=== PATIENT | male | born 1950 | race Caucasian/White ===

== ENCOUNTER → 2016-11-26 | Outpatient (CLI) | payer MEDICARE ==
[~2016-11-26] MED LIST: AMLODIPINE; AMLODIPINE BESYL5 MG PO; ASPIRIN81 M1 PO; ASPIRIN81 M2 PO; BENAZEPRIL; CLOPIDOGREL75 MG PO; COREG3.125 MG PO; COREG6.25 MG PO; EFFIENT10 MG PO; HYDROCHLOROTHIA25 MG PO; ISOSORBIDE MONO30 M1 PO; LOTENSIN20 MG PO; METFORMIN HCL500 M3 PO; NITROGLYCERIN0.4 MG SL; PRAVACHOL PO; PRAVASTATIN SOD40 MG PO; PROTONIX20 MG PO; SYMBICORT INH; ZESTRIL5 MG PO
--- NOTE | ~2016-11-26 | TM ---
[id number] NAME: MIRZA GILBERT MR#: [id number] PROCEDURE PERFORMED Treadmill stress test. DESCRIPTION Resting heart rate is 67. Resting blood pressure is 130/80 mmHg. Baseline EKG shows normal sinus rhythm. No significant ST-T wave changes. PROCEDURE The patient was made to exercise on a standard Abraham protocol. Total exercise time is 7 minutes, completing 1 minute of stage 3 on a standard Abraham protocol. No complaints of chest pain. Maximal heart rate obtained is 135, which is 88% of maximum predicted heart rate. Maximal blood pressure obtained is 215/115 mmHg. The patient had 0.[address]-T wave changes noted in the lateral leads. No arrhythmias noted. CONCLUSION 1. Fair exercise tolerance. 2. There is no clinical, hemodynamic or EKG evidence of ischemia at [id number]-[id number] workload (88% of maximum predicted heart rate, 10.1 METS). 3. Normal heart rate response. 4. Hypertensive blood pressure response with a peak blood pressure of 215/115 mmHg. 5. Normal regular treadmill stress test with hypertensive blood pressure response to exercise. 6. It must be noted that the patient had not taken his blood pressure medications prior to the stress test. Dictated by...
== END | disposition home or self-care (01) ==
LOC: CEKG 09:04
DX: I25.10 Atherosclerotic heart disease of native coronary artery without angina pectoris (principal); E78.5 Hyperlipidemia, unspecified; I10 Essential (primary) hypertension; Z02.1 Encounter for pre-employment examination
CPT/HCPCS: 93017

== ENCOUNTER 2017-01-09 08:18 | Emergency (ER) | payer OTHER, MEDICARE ==
[~2017-01-09] VITALS: Ht 182.9 cm; Wt 102.0 kg
--- NOTE | ~2017-01-09 | EKG ---
PATIENT: MIRZA GILBERT UNIT #: [id number] Ventricular Rate: 53 BPM Atrial Rate: 53 BPM P-R Interval: 142 ms QRS Duration: 72 ms Q-T Interval: 440 ms QTC Calculation(Bezet): 412 ms P [place]: 27 degrees Calculated R [place]: 0 degrees Calculated T [place]: -4 degrees Diagnosis Line: Sinus bradycardia Diagnosis Line: Otherwise normal ECG Diagnosis Line: No previous ECGs available Diagnosis Line: Confirmed by ANIYAH QUIROS MD ([id number]) on 01/10/2017 Diagnosis Line: 5:00:36 PM INTERPRETING MD: ISHAAN MCCALLUM
--- NOTE | ~2017-01-09 | CT71 ---
[facility] A Service of [facility] RADIOLOGY TEXT RESULTS PATIENT: MIRZA GILBERT LOCATION: [place] : 50 UNIT #: [id number] AGE: [address]: Al Null SEX: M ORDER DR: [id number] [facility] [address] [place], [place] [address] [id number] E MR#: [id number] Acc #: [id number] NAME: MIRZA GILBERT : 1950 SEX: M STUDY DATE/TIME: 01/09/2017 10:38 UNIT: [place] ROOM: STUDY DESCRIPTION: CT Head Wo Contrast Attending Physician: Al Null R.N. Ordering Physician: Al Null R.N. Primary Care Physician: Rose Mary Daniels R.N. MEDICAL IMAGING REPORT This report is preliminary unless electronic signature is present EXAM Head CT without contrast HISTORY Loss of balance today with a fall. Headache. No loss of consciousness. TECHNIQUE Axial images were obtained without contrast and compared to 01/12/2012. FINDINGS TECHNIQUE Axial noncontrast images were obtained from the skull base to the vertex. This CT exam was performed with one or more of the following radiation dose reduction techniques: automatic exposure control, adjustment of mA and/or kV according to patient size, and iterative reconstruction. FINDINGS Ventricular size and configuration are normal. There is no evidence of acute infarct or hemorrhage. There are no extraaxial fluid collections. No mass lesion or mass effect is seen. There are no skull fractures. IMPRESSION Normal noncontrast head CT. Dictated by... Mirza Joyner M.D. THIS IS AN ELECTRONICALLY VERIFIED REPORT Mirza Joyner M.D. at 01/09/2017 4:54 PM RLF/cmm [facility] Service [facility] RADIOLOGY TEXT RESULTS PATIENT: MIRZA GILBERT LOCATION: [place] : [birth year] UNIT #: [id number] AGE: [address]: Al Null SEX: M ORDER DR: TD: 01/09/2017 13:49 JOB #: [id number] MEDICAL IMAGING REPORT Page 1 of 1 COPY
--- NOTE | ~2017-01-09 | CR63 ---
[facility] A Service of [facility] RADIOLOGY TEXT RESULTS PATIENT: MIRZA GILBERT LOCATION: [place] : [birth year] UNIT #: [id number] AGE: [address]: Al Null SEX: M ORDER DR: [id number] [facility] [address] [place], [place] [address] [id number] E MR#: [id number] Acc #: [id number] NAME: MIRZA GILBERT : 1950 SEX: M STUDY DATE/TIME: 01/09/2017 10:25 UNIT: [place] ROOM: STUDY DESCRIPTION: CR Chest 2 View Attending Physician: Al Null R.N. Ordering Physician: Al Null R.N. Primary Care Physician: Rose Mary Daniels R.N. MEDICAL IMAGING REPORT This report is preliminary unless electronic signature is present EXAM Chest 01/09/2017 1025 hours HISTORY 66-year-old with pain on left side of chest. Rib pain following fall today. COMPARISON 05/01/2016. FINDINGS Portable upright chest demonstrates [id number]-[id number] cardiomegaly and tortuous aorta slightly increased from prior study. The lungs are well expanded and clear. There is no pleural effusion or pneumothorax. Limited views of the left ribs demonstrate no definite fracture. IMPRESSION Prby-bz-flktcffu cardiomegaly with tortuous aorta. Findings are slightly increased from 05/01/2016. The lungs are clear and there are no effusions. No fracture is seen. Dictated by... Shayna Bhagat M.D. THIS IS AN ELECTRONICALLY VERIFIED REPORT Shayna Bhagat M.D. at 01/09/2017 2:34 PM LEANDRA/garcia TD: 01/09/2017 12:42 JOB #: [id number] MEDICAL IMAGING REPORT [facility] A Service of [facility] RADIOLOGY TEXT RESULTS PATIENT: MIRZA GILBERT LOCATION: [place] : [birth year] UNIT #: [id number] AGE: [address]: Al Null SEX: M ORDER DR: Page 1 of 1 COPY
[2017-01-09 10:17] LABS: BASOPHIL# 0.1 X10e3 (0-0.3); BASOPHIL% 1.4 % (0-2.5); EOSINOPHIL# 0.7 X10e3 (0-0.7); EOSINOPHIL% 7.7 % (0.0-7.0); HEMATOCRIT 38.1 % (38.0-50.0); LYMPHOCYTE# 1.4 X10e3 (1.0-3.5); MEAN CELL VOLUME 89.2 FL (83-96); MEAN CORPUSCULAR HEMOGLOBIN 30.3 PG (28-34); MEAN PLATELET VOLUME 8.7 FL (6.5-11.5); MONOCYTE# 0.9 X10e3 (0-1.0); MONOCYTE% 10.4 % (3.0-12.0); NEUTROPHIL# 5.8 X10e3 (1.5-7.1); NEUTROPHIL% 64.5 % (40-75); PLATELET COUNT 256 X10e3 (140-420); RED BLOOD COUNT 4.28 X10e (3.90-5.60)
[2017-01-09 10:20] LABS: DIFF IND NO
[2017-01-09 10:25] LABS: INR 0.9; PROTHROMBIN TIME (PATIENT) 10.2 SECONDS (10.0-11.7)
[2017-01-09 10:44] LABS: AMPHETAMINE NEG (NEG); BARBITURATES NEG (NEG); BENZODIAZEPINES NEG (NEG); COCAINE NEG (NEG); MARIJUANA NEG (NEG); OPIATES NEG (NEG); TRICYCLIC ANTIDEPRESSANTS NEG (NEG); U METHADONE NEG (NEG)
== END 2017-01-09 12:35 | disposition home or self-care (01) ==
LOC: CED 08:18
PROVIDERS: Nurse Practitioner
DX: S20.212A Contusion of left front wall of thorax, initial encounter (principal); J45.909 Unspecified asthma, uncomplicated; I50.9 Heart failure, unspecified; E11.9 Type 2 diabetes mellitus without complications; W18.30XA Fall on same level, unspecified, initial encounter; Y92.69 Other specified industrial and construction area as the place of occurrence of the external cause; Z79.899 Other long term (current) drug therapy; Z79.82 Long term (current) use of aspirin
CPT/HCPCS: 70450; 71020; 80307; 82947; 85025; 85610; 85730; 93005; 99284; G0480